=== PATIENT | male | born 1935 | race Caucasian/White ===

== ENCOUNTER 2020-01-18 19:10 | Outpatient (CLI) | payer MEDICARE, OTHER | END 2020-01-18 23:59 | disposition EMS.NT | LOC: EMS 19:10 | PROVIDERS: ATTEND Surgery | DX: R19.7 Diarrhea, unspecified (principal) ==

== ENCOUNTER 2020-01-18 19:55 | Emergency (ER) | payer MEDICARE, OTHER ==
[2020-01-18] MEDS ORDERED: SODIUM CHLORIDE 0.9% 1,000 ML IV ONE (20:46)
[2020-01-18] MEDS ORDERED: AZITHROMYCIN 250 MG TABLET PO STA (20:47)
--- NOTE | 2020-01-18 20:48 | ED Physician Documentation ---
PD HPI ABD PAIN - Stated complaint Stated Complaint: N/V/D - Chief complaint Chief Complaint: Abd Pain - History obtained from History obtained from: Patient (He returned from a weeklong trip to [place] 2 days ago. Last night he got acutely ill with diarrhea every 30 minutes. Today had one episode of vomiting. Denies fevers or abdominal pain. No sick contacts. Was not drinking any stream water while he was there.) Review of Systems Constitutional: denies: Fever, Chills Nose: denies: Rhinorrhea / runny nose, Congestion GI: reports: Nausea, Vomiting, Diarrhea. denies: Abdominal Pain PD PAST MEDICAL HISTORY - Past Medical History Past Medical History: Yes Cardiovascular: High cholesterol Respiratory: None Endocrine/Autoimmune: None GI: GERD Psych: None Musculoskeletal: Osteoarthritis, Fatigue, Chronic back pain - Past Surgical History General: Other - Present Medications Home Medications: Ambulatory Orders Medication Instructions Recorded Confirmed Azithromycin 500 mg PO DAILY #2 tablet 01/18/20 Omeprazole 01/18/20 Simvastatin 01/18/20 - Allergies Allergies/Adverse Reactions: Allergies Allergy/AdvReac Type Severity Reaction Status Date / Time No Known Drug Allergies Allergy Verified 01/18/20 20:03 - Social History Does the pt smoke?: No Smoking Status: Never smoker Does the pt drink ETOH?: Yes Does the pt have substance abuse?: No - POLST Patient has POLST: No PD ED PE NORMAL - Vitals Vital signs reviewed: Yes - General General: Alert and oriented X 3, No acute distress - HEENT HEENT: PERRL, EOMI - Neck Neck: Supple, no meningeal sign, No bony TTP - Cardiac Cardiac: RRR, No murmur - Respiratory Respiratory: No respiratory distress, Clear bilaterally - Abdomen Abdomen: Normal bowel sounds, Soft, Non tender - Back Back: No CVA TTP, No spinal TTP - Derm Derm: Normal color, Warm and dry - Extremities Extremities: No edema, No calf tenderness / cord - Neuro Neuro: Alert and oriented X 3, Normal speech Results - Vitals Vitals: Vital Signs - 24 hr 01/18/20 01/18/20 01/18/20 19:55 19:59 20:42 Temperature 36.4 C L Heart Rate 76 72 69 Respiratory 16 16 Rate Blood Pressure 138/111 H 125/73 125/73 O2 Saturation 98 100 100 01/18/20 21:51 Temperature Heart Rate 64 Respiratory 16 Rate Blood Pressure 145/73 H O2 Saturation 97 Oxygen O2 Source Room air - Labs Labs: Laboratory Tests 01/18/20 01/18/20 20:35 20:35 WBC 11.4 H RBC 5.37 Hgb 16.6 Hct 50.0 MCV 93.1 MCH 30.9 MCHC 33.2 RDW 13.1 Plt Count 187 MPV 11.4 Neut # (Auto) 10.0 H Lymph # (Auto) 0.6 L [place] # (Auto) 0.8 Eos # (Auto) 0.0 Baso # (Auto) 0.0 Absolute Nucleated RBC 0.00 Nucleated RBC % 0.0 Sodium 135 Potassium 4.3 Chloride 103 Carbon Dioxide 20 L Anion Gap 12.0 BUN 33 H Creatinine 1.2 Estimated GFR (MDRD) 58 L Glucose 134 H Calcium 9.4 Total Bilirubin 0.9 AST 47 H ALT 51 Alkaline Phosphatase 79 Total Protein 8.1 Albumin 4.4 Globulin 3.7 Albumin/Globulin Ratio 1.2 Lipase 26 PD MEDICAL DECISION MAKING - ED course ED course: This is a very pleasant 84-year-old gentleman who presents with "[employer] revenge. He is administered Zithromax. He was unable to give a stool sample while in the department. His examination is benign. He was feeling a little weak and dizzy and was given IV fluids, probably some element of dehydration after the profuse diarrhea he has had. Departure - Departure Disposition: 01 Home, Self Care Clinical Impression: Diarrhea, travelers' Condition: Good Record reviewed to determine appropriate education?: Yes Instructions: ED Diarrhea Bacterial Prescriptions: Azithromycin 500 mg PO DAILY #2 tablet Comments: Return for new or worsening symptoms or if not better in the next 48 hours or if you run a fever. Drink plenty of fluids. Imodium is okay for your symptoms.
[2020-01-18 20:56] LABS: BASOPHILS % (AUTO) 0.2 %; HGB - HEMOGLOBIN 16.6 g/dL (14.0-18.0); LYMPHOCYTES # (AUTO) 0.6 10^3/uL (1.5-3.5); LYMPHOCYTES % (AUTO) 5.1 %; MEAN CORPUSCULAR HEMOGLOBIN 30.9 pg (27.0-31.0); MEAN CORPUSCULAR HGB CONC 33.2 g/dL (32.0-36.0); MEAN CORPUSCULAR VOLUME 93.1 fL (80.0-94.0); MEAN PLATELET VOLUME 11.4 fL (7.4-11.4); MONOCYTES # (AUTO) 0.8 10^3/uL (0.0-1.0); MONOCYTES % (AUTO) 6.6 %; NEUTROPHILS % (AUTO) 87.7 %; PLT - PLATELET COUNT 187 10^3/uL (130-450); RED BLOOD COUNT 5.37 10^6/uL (4.70-6.10); RED CELL DISTRIBUTION WIDTH 13.1 % (12.0-15.0); WHITE BLOOD COUNT 11.4 x10^3/uL (4.8-10.8)
[2020-01-18 21:13] LABS: ALBUMIN 4.4 g/dL (3.2-5.5); ALBUMIN/GLOBULIN RATIO 1.2 (1.0-2.2); BILIRUBIN,TOTAL 0.9 mg/dL (0.2-1.0); CALCIUM 9.4 mg/dL (8.5-10.3); CREATININE 1.2 mg/dL (0.6-1.2); TOTAL PROTEIN 8.1 g/dL (6.7-8.2)
[2020-01-18 21:52] VITALS: BP 145/73
== END 2020-01-18 22:08 | disposition home or self-care (01) ==
LOC: ED 19:55
DX: A09 Infectious gastroenteritis and colitis, unspecified (principal)
CPT/HCPCS: 36415; 80053; 83690; 85025; 96360; 99283; 99284; A9270

== ENCOUNTER 2022-09-01 08:00 | Outpatient (CLI) | payer MEDICARE, OTHER ==
[2022-09-01 16:22] LABS: BASOPHILS % (AUTO) 0.1 %; EOSINOPHILS # (AUTO) 0.2 10^3/uL (0.0-0.7); EOSINOPHILS % (AUTO) 2.4 %; HCT - HEMATOCRIT 47.5 % (42.0-52.0); HGB - HEMOGLOBIN 15.6 g/dL (14.0-18.0); LYMPHOCYTES % (AUTO) 29.2 %; MEAN CORPUSCULAR HEMOGLOBIN 30.4 pg (27.0-31.0); MEAN CORPUSCULAR HGB CONC 32.8 g/dL (32.0-36.0); MEAN CORPUSCULAR VOLUME 92.4 fL (80.0-94.0); MEAN PLATELET VOLUME 12.3 fL (7.4-11.4); MONOCYTES # (AUTO) 0.7 10^3/uL (0.0-1.0); MONOCYTES % (AUTO) 10.6 %; NEUTROPHILS # (AUTO) 3.9 10^3/uL (1.5-6.6); NEUTROPHILS % (AUTO) 57.3 %; PLT - PLATELET COUNT 198 10^3/uL (130-450); RED BLOOD COUNT 5.14 10^6/uL (4.70-6.10); RED CELL DISTRIBUTION WIDTH 12.6 % (12.0-15.0); WHITE BLOOD COUNT 6.8 x10^3/uL (4.8-10.8)
[2022-09-01 16:46] LABS: PSA TOTAL 0.07 ng/mL (0.000-2.000)
[2022-09-01 16:59] LABS: ALBUMIN 4.4 g/dL (3.2-5.5); ALBUMIN/GLOBULIN RATIO 1.5 (1.0-2.2); ALKALINE PHOSPHATASE 65 IU/L (42-121); ALT ALANINE AMINOTRANSFERASE 25 IU/L (10-60); AST ASPARTATE AMINOTRANSFERASE 28 IU/L (10-42); BUN - BLOOD UREA NITROGEN 22 mg/dL (6-20); CALCIUM 9.1 mg/dL (8.5-10.3); CARBON DIOXIDE - CO2 27 mmol/L (21-32); CHLORIDE 105 mmol/L (101-111); CHOL/HDL RATIO 2.8 (<5.0); CHOLESTEROL 159 mg/dL; CK- CREATINE KINASE 122 IU/L (22-269); CREATININE 0.9 mg/dL (0.6-1.2); GFR - MDRD 80 (>89); GLUCOSE 96 mg/dL (70-100); HDL CHOLESTEROL 57 mg/dL; LDL CHOLESTEROL,CALCULATED 87 mg/dL; LDL/HDL RATIO 1.5 (<3.6); POTASSIUM 4.1 mmol/L (3.5-5.0); SODIUM 140 mmol/L (135-145); TOTAL PROTEIN 7.3 g/dL (6.7-8.2); TRIGLYCERIDES 77 mg/dL; VLDL CHOLESTEROL 15 mg/dL
== END 2022-09-01 23:59 | disposition home or self-care (01) ==
LOC: LAB.R 08:00
PROVIDERS: ATTEND Internal Medicine
DX: Z00.00 Encounter for general adult medical examination without abnormal findings (principal); K21.9 Gastro-esophageal reflux disease without esophagitis; Z86.010 Personal history of colon polyps; E78.5 Hyperlipidemia, unspecified; H35.82 Retinal ischemia; C61 Malignant neoplasm of prostate; Z13.6 Encounter for screening for cardiovascular disorders; Z79.899 Other long term (current) drug therapy
CPT/HCPCS: 80053; 80061; 82550; 83721; 84153; 84443; 85025

== ENCOUNTER 2023-05-25 09:22 | Day surgery (SDC) | payer MEDICARE ==
[2023-05-25] MEDS ORDERED: LACTATED RINGERS 1,000 ML IV ONE ×2 (09:42→11:17)
[2023-05-25] MEDS ORDERED: PROPOFOL 500 MG/50 ML 500 MG/50 ML VIAL ONE (10:29)
--- NOTE | 2023-05-25 10:33 | ANESTHESIA ---
Pre-Anesthesia VS, & Labs - Diagnosis screening exam - Procedure colonoscopy Vital Signs: Temp Pulse Resp BP Pulse Ox O2 Flow Rate 36.4 C L 52 L 13 180/72 H 99 0 05/25/23 09:43 05/25/23 09:43 05/25/23 09:43 05/25/23 09:43 05/25/23 09:43 05/25/23 09:43 Height: 5 ft 8 in Weight (kg): 78.5 kg Body Mass Index: 26.3 BMI Classification: Overweight - NPO >8 hours Last Fluid Intake: 0725 Home Medications and Allergies Omeprazole 20 mg PO DAILY 01/18/20 Simvastatin 20 mg PO DAILY 01/18/20 Allergies/Adverse Reactions: Allergies Allergy/AdvReac Type Severity Reaction Status Date / Time No Known Drug Allergies Allergy Verified 05/25/23 09:52 Anes History & Medical History - Anesthetic History Anesthesia Complications: reports: No previous complications - Medical History Cardiovascular: reports: High cholesterol Pulmonary: reports: None Gastrointestinal: reports: GERD Urinary: reports: Benign prostate hypertrophy Neuro: reports: None Musculoskeletal: reports: Osteoarthritis, Fatigue, Chronic back pain Endocrine/Autoimmune: reports: None Blood Disorders: reports: None Skin: reports: None Smoking Status: Never smoker Psychosocial: reports: No issues indicated History of Cancer?: No - Surgical History General: reports: Colonoscopy, Other Exam General: Alert, Oriented x3, Cooperative, No acute distress Dental: WNL Mouth Openin Fingerbreadth Neck Mobility: Normal Mallampati classification: III Thyromental Distance: 4-6 cm Mental/Cognitive Status: Alert/Oriented X3, Normal for patient Plan Anesthesia Type: General, Total IV Consent for Procedure(s) Verified and Reviewed: Yes Code Status: Attempt Resuscitation ASA classification: 2-Mild systemic disease Is this case an emergency?: No
[2023-05-25 11:44] VITALS: BP 131/64
--- NOTE | 2023-05-26 09:25 | ANESTHESIA POST OP EVALUATION ---
Anesthesia Post Eval - Post Anesthesia Eval Vitals: Last Vital Signs Temp 36.8 C 05/25/23 11:19 Pulse 56 L 05/25/23 11:39 Resp 15 05/25/23 11:39 BP 131/64 H 05/25/23 11:39 Pulse Ox 100 05/25/23 11:39 O2 Flow Rate 0 05/25/23 09:43 CV Function Including HR & BP: Stable Pain Control: Satisfactory Nausea & Vomiting: Negative Mental Status: Baseline Respiratory Status: Airway Patent Hydration Status: Satisfactory Anesthesia Complications: None
== END 2023-05-25 09:23 | disposition home or self-care (01) ==
LOC: SDS 09:22
PROVIDERS: ATTEND Surgery
DX: Z12.11 Encounter for screening for malignant neoplasm of colon (principal); K57.30 Diverticulosis of large intestine without perforation or abscess without bleeding; K64.1 Second degree hemorrhoids; Z87.891 Personal history of nicotine dependence; Z86.010 Personal history of colon polyps
CPT/HCPCS: 45378; J7120

== ENCOUNTER 2024-02-21 07:04 | Outpatient (CLI) | payer MEDICARE ==
--- NOTE | 2024-02-21 10:56 | Ultrasound Report ---
PROCEDURE: Carotid Doppler Complete INDICATIONS: BELVATED BP TECHNIQUE: Color and pulse Doppler interrogation was performed of both carotid systems, with image documentation and velocity measurements. COMPARISON: None. FINDINGS: Right side: Brachial blood pressure: 167/74 mm Hg. Common carotid artery peak systolic velocity: 70.62 cm/sec. Internal carotid artery peak systolic velocity: 80.99 cm/sec. Internal carotid artery end diastolic velocity: 28.48 cm/sec. External carotid artery peak systolic velocity: 88.28 cm/sec. ICA/CCA peak systolic ratio: 1.2 . Vergara scale imaging description: Mild plaque. Minimal stenosis. Percent internal carotid artery stenosis: Minimal. Vertebral artery: Flow direction is antegrade. Left side: Brachial blood pressure: 169/70 mm Hg. Common carotid artery peak systolic velocity: 63.79 cm/sec. Internal carotid artery peak systolic velocity: 81.55 cm/sec. Internal carotid artery end diastolic velocity: 24.59 cm/sec. External carotid artery peak systolic velocity: 91.53 cm/sec. ICA/CCA peak systolic ratio: 1.2 . Vergara scale imaging description: Mild plaque. Minimal stenosis. Percent internal carotid artery stenosis: Minimal. Vertebral artery: Flow direction is antegrade. IMPRESSION: 1. In the right internal carotid artery, there is no hemodynamically significant stenosis based on pe ak systolic velocity criteria. 2. In the left internal carotid artery, there is no hemodynamically significant stenosis based on pea k systolic velocity criteria. 3. Antegrade blood flow within the right vertebral artery. 4. Antegrade blood flow within the left vertebral artery. The estimate of stenosis included in the report of the imaging study was calculated using the [facility]-end orsed standards of carotid artery stenosis. Reviewed by: Felix Sinha MD on 02/21/2024 10:55 AM PDT Approved by: Felix Sinha MD on 02/21/2024 10:55 AM PDT Station ID: [id number]
== END 2024-02-21 07:05 | disposition home or self-care (01) ==
LOC: DI 07:04
PROVIDERS: ATTEND Internal Medicine
DX: H35.60 Retinal hemorrhage, unspecified eye (principal); R73.9 Hyperglycemia, unspecified; R03.0 Elevated blood-pressure reading, without diagnosis of hypertension
CPT/HCPCS: 93880